=== PATIENT | female | born 1965 | race Hispanic/Latino ===

== ENCOUNTER → 2024-09-05 | Day surgery (SDC) | payer OTHER ==
[~2024-09-05] MED LIST: AMLODIPINE BESYL5 MG PO; ASPIRIN EC81 MG PO; CRESTOR40 MG PO; FENTANYL CITRATE/PF 100MCG/2 ML INJ ONE; GLUCAGON FOR INJ 1 MG VIAL ONE; HYDROCHLOROTHIA25 MG PO; HYOSCYAMINE SULFATE 0.5 MG/ML INJ ONE; LIDOCAINE HCL 2% LOCAL INJ 5 ML SDV VIAL INJ ONE; LOSARTAN POTAS100 MG PO; METFORMIN HCL500 M2 PO; MIDAZOLAM HCL 2 MG/2 ML VIAL ONE; NOVOLIN 70100 UNIT/3 SC; ONDANSETRON HCL INJ 2MG/ML 2ML 2 MG/ML VIAL ONE; PAROXETINE HCL20 MG PO; PROPOFOL IV EMULSION 10 MG/ML 20 ML VIAL ONE; TEMAZEPAM7.5 MG PO; TERBINAFINE HC250 MG PO
[2024-09-05] MEDS: LACTATED RINGER'S 1,000 ML ONE (07:51)
[2024-09-05 09:23] VITALS: TEMP 97.6
[2024-09-05 09:45] VITALS: BP 143/82; PULSE 76; RESP 18; O2SAT 99
== END | disposition home or self-care (01) ==
LOC: OR 06:40
PROVIDERS: ATTEND Internal Medicine Gastroenterology
DX: R19.5 Other fecal abnormalities (principal); D12.3 Benign neoplasm of transverse colon; K62.1 Rectal polyp; K59.00 Constipation, unspecified; K64.8 Other hemorrhoids; I10 Essential (primary) hypertension; E11.9 Type 2 diabetes mellitus without complications; F41.9 Anxiety disorder, unspecified; Z01.810 Encounter for preprocedural cardiovascular examination; Z79.82 Long term (current) use of aspirin; Z79.4 Long term (current) use of insulin; Z79.84 Long term (current) use of oral hypoglycemic drugs; Z79.899 Other long term (current) drug therapy
CPT/HCPCS: 45385; 93005; J1610; J1980; J2003; J2250; J2405; J2704; J3010; J7121; 45378